=== PATIENT | female | born 1955 | race Caucasian/White ===

== ENCOUNTER 2016-11-19 10:57 | Inpatient (IN) ==
[2016-11-19] MEDS ORDERED: MORPHINE 4 MG/ML SYRINGE IVP PRN (12:46)
[2016-11-19] MEDS ORDERED: ATROPINE SULFATE PFS IVP PRN (12:46)
[2016-11-19] MEDS ORDERED: VISTARIL INJ IM PRN (12:46)
[2016-11-19] MEDS ORDERED: TYLENOL PO PRN ×2 (12:46→12:53)
[2016-11-19] MEDS ORDERED: NITROSTAT SL PRN (12:46)
[2016-11-19 13:19] LABS: BASOPHILS % (AUTO) 0.7 % (0.0-3.0); EOSINOPHILS % (AUTO) 0.5 % (0.0-7.0); HEMATOCRIT 36.7 % (37.0-47.0); HEMOGLOBIN 11.9 g/dl (12.0-16.0); IMMATURE GRANULOCYTE % (AUTO) 0.3 % (0.0-5.0); LYMPHOCYTES # (AUTO) 0.9 K/uL (0.60-3.4); LYMPHOCYTES % (AUTO) 15.2 (10.0-50.0); MEAN CORPUSCULAR HEMOGLOBIN 28.9 pg (27.0-31.0); MEAN CORPUSCULAR HGB CONC 32.4 (31.8-35.4); MEAN CORPUSCULAR VOLUME 89.1 fl (81.0-99.0); MONOCYTES # (AUTO) 0.6 K/uL (0.4-2.0); MONOCYTES % (AUTO) 10.1 (0-10); NEUTROPHILS # (AUTO) 4.4 K/ul (2.0-6.9); NEUTROPHILS % (AUTO) 73.2; PLATELET COUNT 188 10^3/uL (140-440); RED BLOOD COUNT 4.12 10^6/ul (4.20-5.40); WHITE BLOOD COUNT 5.94 K/ul (4.6-10.2)
[2016-11-19 13:19] LABS: BILIRUBIN,URINE Negative (NEGATIVE); KETONES,URINE Negative (NEGATIVE); LEUKOCYTE ESTERASE ,URINE Trace (NEGATIVE); NITRITE,URINE Negative (NEGATIVE); PROTEIN,URINE Negative (NEGATIVE); URINE, BLOOD Negative (NEGATIVE)
[2016-11-19] MEDS ORDERED: ULTRAM PO PRN (13:19)
[2016-11-19] MEDS ORDERED: DYAZIDE PO PRN (13:19)
[2016-11-19 13:23] LABS: ADD URINE MICROSCOPIC YES
[2016-11-19 13:30] LABS: BACTERIA,URINE TRACE (NOT PRESENT)
[2016-11-19 13:35] LABS: FLU INTERNAL QC INTERNAL QC VALID; RAPID FLU A NEGATIVE (NEGATIVE); RAPID FLU B NEGATIVE (NEGATIVE)
[2016-11-19 13:54] VITALS: BMI 35.6
[2016-11-19 13:54] LABS: ALANINE AMINOTRANSFERASE 16 U/L (12-78); ALBUMIN 3.5 g/dL (3.4-5.0); ALBUMIN/GLOBULIN RATIO 1.06; ALKALINE PHOSPHATASE 104 U/L (53-141); ANION GAP 10.9; ASPARTATE AMINO TRANSFERASE 19 U/L (15-37); BLOOD UREA NITROGEN 13 mg/dL (7-18); CALCIUM 9.4 mg/dL (8.2-10.2); CARBON DIOXIDE 26 mmol/L (23-31); CHLORIDE 105 mmol/L (98-107); CREATINE KINASE 47 U/L; GLUCOSE 116 mg/dL (82-115); MYOGLOBIN 117 ng/ml; POTASSIUM 3.9 mmol/L (3.5-5.10); SODIUM 138 mmol/L (136-145); TOTAL PROTEIN 6.8 g/dL (5.8-8.1)
--- NOTE | 2016-11-19 14:26 | DI ---
EXAM: Two views of the chest. History: Cough. Comparison: Chest radiograph 08/16/2014 Findings: Heart size is normal. No focal consolidation. No appreciable pleural fluid and no pneum othorax. No acute osseous abnormalities. Impression: No acute cardiopulmonary process.
[2016-11-19] MEDS: ROCEPHIN 1 GM in SODIUM CHLORIDE 50 ML IV SCH (15:41)
[2016-11-19] MEDS: SODIUM CHLORIDE 1,000 ML IV SCH (15:42)
[2016-11-19] MEDS: SOLU-MEDROL 40 MG IVP SCH ×2 (15:50→20:40)
[2016-11-19] MEDS: PHENERGAN WITH CODEINE 6.25/10 MG/5 ML PO SCH ×3 (15:50→20:42)
[2016-11-19] MEDS ORDERED: BETHANECHOL CHLORIDE 25 MG PO SCH (18:00)
[2016-11-19] MEDS: NON-FORMULARY MEDICATION (Esomeprazole Magnesium [Nexium] 20 MG) PO SCH ×22 (20:40)
[2016-11-19] MEDS: REQUIP PO SCH (20:41)
[2016-11-19] MEDS ORDERED: ROPINIROLE HCL PO SCH (21:00)
[2016-11-19] MEDS ORDERED: PRAVACHOL PO SCH (21:00)
[2016-11-19 21:45] LABS: CREATINE KINASE 85 U/L; MYOGLOBIN 76 ng/ml
[2016-11-20] MEDS: SOLU-MEDROL 40 MG IVP SCH (05:55)
[2016-11-20] MEDS ORDERED: SYNTHROID PO SCH (06:30)
[2016-11-20 06:31] LABS: BASOPHILS % (AUTO) 0.2 % (0.0-3.0); HEMATOCRIT 34.5 % (37.0-47.0); HEMOGLOBIN 11.2 g/dl (12.0-16.0); LYMPHOCYTES # (AUTO) 1.1 K/uL (0.60-3.4); LYMPHOCYTES % (AUTO) 21.7 (10.0-50.0); MEAN CORPUSCULAR HEMOGLOBIN 28.7 pg (27.0-31.0); MEAN CORPUSCULAR HGB CONC 32.5 (31.8-35.4); MEAN CORPUSCULAR VOLUME 88.5 fl (81.0-99.0); MONOCYTES # (AUTO) 0.2 K/uL (0.4-2.0); MONOCYTES % (AUTO) 3.9 (0-10); NEUTROPHILS # (AUTO) 3.8 K/ul (2.0-6.9); NEUTROPHILS % (AUTO) 73.2; PLATELET COUNT 192 10^3/uL (140-440); WHITE BLOOD COUNT 5.16 K/ul (4.6-10.2)
[2016-11-20] MEDS: SODIUM CHLORIDE 1,000 ML IV SCH (06:37)
[2016-11-20 06:58] LABS: ALBUMIN 3.2 g/dL (3.4-5.0); ALBUMIN/GLOBULIN RATIO 1.03; ANION GAP 9.9; BILIRUBIN,TOTAL 0.2 mg/dL (0.00-1.20); BUN/CREATININE RATIO 18.98; CALCIUM 9.1 mg/dL (8.2-10.2); CREATININE 0.79 mg/dL (0.60-1.30); POTASSIUM 3.9 mmol/L (3.5-5.10); TOTAL PROTEIN 6.3 g/dL (5.8-8.1)
[2016-11-20] MEDS ORDERED: ASPIRIN EC PO SCH ×2 (08:00)
[2016-11-20] MEDS: REQUIP PO SCH (08:17)
[2016-11-20] MEDS: NON-FORMULARY MEDICATION (Esomeprazole Magnesium [Nexium] 20 MG) PO SCH ×22 (08:19)
[2016-11-20] MEDS: ROCEPHIN 1 GM in SODIUM CHLORIDE 50 ML IV SCH (08:20)
[2016-11-20] MEDS: PHENERGAN WITH CODEINE 6.25/10 MG/5 ML PO SCH (08:27)
[2016-11-20] MEDS ORDERED: NON-FORMULARY MEDICATION (Solifenacin Succinate [Vesicare] 10 MG) PO SCH ×22 (09:00)
[2016-11-20] MEDS ORDERED: BETHANECHOL CHLORIDE 25 MG PO SCH (09:00)
[2016-11-20] MEDS ORDERED: VESICARE PO SCH (09:00)
[2016-11-20] MEDS ORDERED: ROPINIROLE HCL PO SCH (09:00)
[2016-11-20 10:38] VITALS: BP 106/48; TEMP 98.2
--- NOTE | 2016-11-20 12:56 | PCM.PROG ---
Attending Provider: ATTENDING PROVIDER: Dr. CASSIDY OLIVAS DATE OF SERVICE: 11/20/16 SUBJECTIVE: This 61 year old WHITE/ F was hospitalized 11/19/16. The patient is admitted with flu, pneumonia and fever of 103 yesterday. No fever today. The patient complains of cough which is productive. Blood pressure has been running low probably from the Phenergan with Codeine. She is urinating well and has been up to the bathroom by herself. REVIEW OF SYSTEMS: CONSTITUTIONAL: No fever, no chills. ENDOCRINE: No weight loss or weight gain. HEENT: No sinus drainage, no sore throat. CVS: No angina symptoms. No CHF symptoms. No palpitations. No atypical chest pain for CAD. No shortness of breath. RESPIRATORY: Cough and congestion. GI: No melena. No abdominal pain. No nausea, no vomiting. : No hematuria. No polyuria. SKIN: No rash. No wounds. MUSCULOSKELETAL: No pain. REHAB TRAINER: No blackout, no dizziness. No headache. No double vision. PSYCHIATRIC: Not anxious; no depression. No suicidal thoughts. No homicidal thoughts. PHYSICAL EXAMINATION: GENERAL: Lying in bed in no distress. VITAL SIGNS: Temperature 98.4 F, Pulse 62, Respiratory Rate 17, BP 90/58, Pulse Ox 96% HEENT: Normocephalic, atraumatic. Mucosa is dry, pallor positive. NECK: No JVP, no carotid bruit. No lymphadenopathy. CARDIAC: S1, S2, no S3. No murmur, gallop or regurgitation. LUNGS: Decreased entry. Clear to auscultation. ABDOMEN: Soft, non-tender. Bowel sounds active. No rigidity, guarding or CVA tenderness. EXTREMITIES: No clubbing, cyanosis or edema. NEUROLOGIC: Awake, alert and oriented x3. LYMPHATIC: No palpable lymph nodes SKIN: Not dry. Intact. MUSCULOSKELETAL: No joint swelling. LAB REVIEW: 11/20/16 05:45 11/20/16 05:45 11/20/16 05:45: WBC 5.16, RBC 3.90 L, Hgb 11.2 L, Hct 34.5 L, MCV 88.5, MCH 28.7 , MCHC 32.5, RDW Coeff of Lewis 12.7, Plt Count 192, Immature Gran % (Auto) 1.0, Neut % (Auto) 73.2, Lymph % (Auto) 21.7, [place] % (Auto) 3.9, Eos % (Auto) 0.0, Baso % (Auto) 0.2, Immature Gran # (Auto) 0.1, Neut # 3.8, Lymph # 1.1, [place] # 0.2 L, Eos # 0.0, Baso # 0.0, Sodium 140, Potassium 3.9, Chloride 109 H, Carbon Dioxide 25, Anion Gap 9.9, BUN 15, Creatinine 0.79, Estimated GFR (MDRD) 74.00, BUN/Creatinine Ratio 18.98, Glucose 135 H, Calcium 9.1, Total Bilirubin 0.20, AST 19, ALT 18, Alkaline Phosphatase 102, Total Protein 6.3, Albumin 3.2 L, Globulin 3.1, Albumin/Globulin Ratio 1.03 11/19/16 21:18: Total Creatine Kinase 85, Myoglobin 76, Troponin I < 0.0100 11/19/16 13:13: WBC 5.94, RBC 4.12 L, Hgb 11.9 L, Hct 36.7 L, MCV 89.1, MCH 28.9 , MCHC 32.4, RDW Coeff of [place] 12.8, Plt Count 188, Immature Gran % (Auto) 0.3, Neut % (Auto) 73.2, Lymph % (Auto) 15.2, [place] % (Auto) 10.1 H, Eos % (Auto) 0.5 , Baso % (Auto) 0.7, Immature Gran # (Auto) 0.0, Neut # 4.4, Lymph # 0.9, [place] # 0.6, Eos # 0.0, Baso # 0.0, Sodium 138, Potassium 3.9, Chloride 105, Carbon Dioxide 26, Anion Gap 10.9, BUN 13, Creatinine 1.00, Estimated GFR (MDRD) 56.00 , BUN/Creatinine Ratio 13.00, Glucose 116 H, Calcium 9.4, Total Bilirubin 0.30, AST 19, ALT 16, Alkaline Phosphatase 104, Total Creatine Kinase 47, Myoglobin 117, Troponin I < 0.0100, Total Protein 6.8, Albumin 3.5, Globulin 3.3, Albumin/ Globulin Ratio 1.06 11/19/16 13:08: Urine Color Yellow, Urine Clarity Clear, Urine pH 7.0, Ur Specific [place] 1.020, Urine Protein Negative, Urine Glucose (UA) Negative, Urine Ketones Negative, Urine Blood Negative, Urine Nitrite Negative, Urine Bilirubin Negative, Urine Urobilinogen 0.2, Ur Leukocyte Esterase Trace, Urine Microscopic RBC 0-2, Urine Microscopic WBC 5-10, Ur Squamous Epith Cells 0-2, Urine Bacteria Trace, Influenza A (Rapid) Negative, Influenza B (Rapid) Negative ASSESSMENT: 1. Febrile illness 2. URI 3. Hypotension secondary to medication PLAN: 1. Discharge home. 2. Will have patient up and about, fall precautions (watch for dizziness). 3. Off work until Thursday. 4. Medrol Dosepak. 5. Keflex 500 mg b.i.d. times 7 days. 6. Probiotics. 7. Increase hydration. 8. Followup in the office in one week. Plan and coordination of the patient's care discussed in the presence of Strapper Operator and nurse. CONDITION: Stable SCRIBED BY: HADLEY HERNANDES Engineering Job Titles scribed while in presence of service performed by Dr. CASSIDY OLIVAS on 11/20/16 ([id number])
--- NOTE | 2016-11-21 14:14 | HP ---
DATE OF SERVICE: 11/19/16 REASON FOR HOSPITALIZATION: "Since Thursday I have not been feeling good." HISTORY OF PRESENT ILLNESS: This is a 61-year-old female who states that since Thursday she has not been feeling good. She choked on a hamburger two days ago and since then has been coughing with congestion. Cough is dry. She has sinus drainage. She is hurting all over; throat pain. She checked her temperature at home and it was 102.4. She took two Tylenol and came to the office. REVIEW OF SYSTEMS: CONSTITUTIONAL: No fever, no fatigue. HEENT: Sinus drainage and sore throat. RESPIRATORY: Cough and congestion. CARDIOVASCULAR: No atypical chest pain for coronary artery disease. No angina , CHF symptoms, palpitations or shortness of breath. GASTROINTESTINAL: No melena or abdominal pain. No GERD. GENITOURINARY: No hematuria, no polyuria. ASSET PROTECTION GREETER: No blackout, no dizziness, no headache, no double vision. MUSCULOSKELETAL: Osteoarthritis pain. No joint swelling. ENDOCRINE: No weight loss, no weight gain. SKIN: Dry, no rash. PSYCHIATRIC: Anxious. No depression, no suicidal thoughts, no homicidal thoughts. PAST MEDICAL HISTORY: 1. COPD 2. HYPOTHYROIDISM 3. RESTLESS LEG SYNDROME 4. OSTEOARTHRITIS 5. STATUS POST CHOLECYSTECTOMY 6. OBESITY 7. DYSLIPIDEMIA 8. DDD MULTILEVEL WITHOUT COMPRESSION FRACTURE (L-SPINE X-RAY 05/21/16) 9. ANXIETY PAST SURGICAL HISTORY: 1. CHOLECYSTECTOMY 2. LASIK EYE SURGERY 3. ROTATOR CUFF LEFT 4. TUBAL LIGATION SOCIAL HISTORY: The patient is . Former smoker - does not smoke now. No alcohol use. Has two children. FAMILY HISTORY: Not significant. MEDICATIONS: 1. Celexa 40 mg one daily 2. ASA 325 mg one daily 3. Synthroid 50 mcg p.o. daily 4. Requip 2 mg one at h.s. 5. Protonix 40 mg daily 6. Vesicare 10 mg daily 7. Dyazide 3-4 days week 8. Tramadol 50 mg b.i.d. p.r.n. 9. Pravachol 40 mg one daily ALLERGIES: SULFA, PENICILLIN PHYSICAL EXAMINATION: V/S: Pulse 92, BP 140/70, temperature 103.8, 02 sat 96%. Weight 164.8 pounds. Height 4'9". GENERAL APPEARANCE: Oriented times three. Ill looking. Dry Mucosa. HEENT: Normal. NECK: No JVP, no bruits. RESPIRATORY: Lungs are clear. CARDIOVASCULAR: S1, S2, no S3, no murmurs. No cyanosis, clubbing. No ascites. GI/ABDOMEN: No tenderness. Bowel sounds are active. EXTREMITIES: edema, pulses +1, equal. ASSET PROTECTION GREETER: Deep tendon reflexes, sensory, motor and gait all normal. RECTAL/PELVIC: Colonoscopy - Dr. Diop 2012. Pelvic - Dr. Beltrán Mullen. Mammogram 03/01 [facility]. ASSESSMENT: 1. FEBRILE ILLNESS/FLU/ASPIRATION PNEUMONITIS 2. COPD 3. HYPOTHYROIDISM 4. RESTLESS LEG SYNDROME 5. OSTEOARTHRITIS 6. STATUS POST CHOLECYSTECTOMY 7. OBESITY 8. OSTEOARTHRITIS LEFT HIP PLAN: 1. Admit to regular floor with telemetry protocol. 2. CBC, CMP 3. Rapid flu A & B 4. Rapid strep 5. UA C & S 6. Chest x-ray AP and lateral 7. IV fluids at 70 mL/hr 8. Blood cultures times 2 9. Tylenol 500 mg p.o. t.i.d. p.r.n. fever more than 101 10. Rocephin 1 gm IV daily 11. Solu-Medrol IV q.8hr 12. Phenergan/Codeine two teaspoons p.o. q.i.d. TIME SPENT: More than 70 minutes. MTDD
--- NOTE | 2016-12-01 14:17 | DS ---
DATE OF SERVICE: 11/20/16 FINAL DIAGNOSIS: 1. Febrile illness/ upper respiratory tract infection, fever was 103.2 2. Hypotension secondary to the medication most likely the Phenergan codeine 3. History of COPD 4. TIA 5. GERD 6. Osteoarthritis 7. Hypothyroidism 8. Depression 9. Anxiety DISCHARGE INSTRUCTIONS: Discharge the patient home. Tylenol for fever. Please continue rest of the medication as per reconciliation. MEDICATIONS AT DISCHARGE: Vesicare 10mg PO daily Synthroid 50mcg PO QDAC Requip 2mg PO daily Bethanechol Chloride 25mg PO 1800 Aspirin 325mg PO daily Urecholine 25mg PO daily Dyazide one PO three times per week PRN Pravachol 40mg PO bedtime Tramadol 100mg PO twice a day PRN Requip 2.5mg PO bedtime Nexium 20mg PO twice a day Keflex 500mg PO Q 12 hours Medrol Dosepak as directed NEW PRESCRIPTIONS: Keflex 500mg twice a day for 7 days Medrol Dosepak as directed DIET INSTRUCTIONS: Increase fluids. ACTIVITY: As much as tolerated. Can get back to work on 11/24/16. SMOKING: Non-smoker DISEASE SPECIFIC EDUCATION: Fever Antibiotics Use of antibiotics and diarrhea as a complication been discussed. HOSPITAL COURSE: Jade Galvez who is a 61 year old female who works at the local [employer]f came to the office complaining of fever, cough, congestion, getting yellow/green phlegm and temperature was 103.2. With given high grade fever, cough, congestion and yellow/green sputum expected highly suspicious for the pneumonia some lung rattling and basilar crackles were also identified the patient was admitted to the hospital and started on the IV fluids and IV antibiotic Rocephin. Chest x-ray was negative for the pneumonia. Influenza A and B are negative. With Tylenol and antibiotic the patient's temperature was controlled and the next one was 99.3, 98.4. Phenergan and codeine was given. Her blood pressure was 81 systolic and 90 systolic but was asymptomatic walking in and out of the room. She says that she is not dizzy. Blood cultures were negative and strep screen was negative. The patient was afebrile and activity even though the blood pressure low she was not having any symptoms. Urine output was good. U/A was negative for any infection. Chest x-ray was negative for the pneumonia. By the next day the patient was doing better and at that time the patient is discharged home with antibiotic Keflex and Steroid pack. Advised to take a lot of fluids and take rest from work , one day. Follow up in the office within one week. TIME SPENT: More than 45 minutes. GWENDOLYN
== END 2016-11-20 11:02 | disposition home or self-care (01) | DRG 153 ==
LOC: MEDSURG A 10:57
PROVIDERS: ADMIT Emergency Medicine; ATTEND Emergency Medicine
DX: J06.9 Acute upper respiratory infection, unspecified (principal); R50.9 Fever, unspecified; I95.2 Hypotension due to drugs; T42.6X5A Adverse effect of other antiepileptic and sedative-hypnotic drugs, initial encounter; J44.9 Chronic obstructive pulmonary disease, unspecified; K21.9 Gastro-esophageal reflux disease without esophagitis; M19.90 Unspecified osteoarthritis, unspecified site; E03.9 Hypothyroidism, unspecified; F41.8 Other specified anxiety disorders; E66.9 Obesity, unspecified; Y92.9 Unspecified place or not applicable; Z79.899 Other long term (current) drug therapy; Z86.73 Personal history of transient ischemic attack (TIA), and cerebral infarction without residual deficits; Z87.891 Personal history of nicotine dependence
CPT/HCPCS: 36415; 80053; 81001; 82550; 83874; 84484; 85025; 87040; 87086; 87651; 87804; 87880; 93005; 93010

== ENCOUNTER 2016-12-12 11:41 | Outpatient (CLI) ==
[2016-12-12 12:16] LABS: FLU INTERNAL QC INTERNAL QC VALID; RAPID FLU A NEGATIVE (NEGATIVE); RAPID FLU B NEGATIVE (NEGATIVE)
== END 2016-12-12 11:42 | disposition home or self-care (01) ==
LOC: LAB 11:41
PROVIDERS: ATTEND Emergency Medicine
DX: R68.89 Other general symptoms and signs (principal)
CPT/HCPCS: 87804

== ENCOUNTER 2017-02-13 10:07 | Outpatient (CLI) ==
--- NOTE | 2017-02-13 11:37 | DI ---
EXAM: Three views of the right foot. History: Right foot pain. Findings: No acute fracture or dislocation. Moderate narrowing of the first MTP joint with subchon dral sclerosis and osteophyte formation. Tiny plantar spur. Borderline pes planus deformity. Diff use subcutaneous edema. Impression: 1. No acute osseous abnormality. 2. Moderate osteoarthritis of the first MTP joint. 3. Diffuse subcutaneous edema.
== END 2017-02-13 10:08 | disposition home or self-care (01) ==
LOC: RAD 10:07
PROVIDERS: ATTEND Internal Medicine
DX: M79.671 Pain in right foot (principal)

== ENCOUNTER 2017-08-27 11:28 | Outpatient (CLI) ==
--- NOTE | 2017-08-27 12:43 | DI ---
Exam: Two x-rays of the chest. Comparison: 11/19/2016. Reason for exam: Cough. FINDINGS: No pneumothorax, pleural effusion, or focal consolidation. The cardiac silhouette is unch anged. The imaged osseous structures appear grossly unremarkable with degenerative disease in the althea mbosacral spine. Surgical clips are seen in the right upper quadrant likely after gallbladder remova l. Impression: No acute cardiopulmonary process.
== END 2017-08-27 11:29 | disposition home or self-care (01) ==
LOC: RAD 11:28
PROVIDERS: ATTEND Internal Medicine
DX: R05 Cough (principal)

== ENCOUNTER 2017-10-19 06:35 | Outpatient (CLI) ==
--- NOTE | 2017-10-20 08:46 | ECHO2D ---
Date of Exam: 10/19/17 Ordering Physician: TRANG BARRETO Room #: OP Reason for Echo: SOB, LEG EDEMA, COPD M-Mode Normal Adult Results LV Dimensions Normal Adult Results AoV Opening excursions >1.6 >1.6 LVEDD-base- 3.5-5.8 4.4 Ao root dimensions 2.0-3.7 3.1 LVESD-base- 3.1-4.6 L. Atrium dimensions 1.9-3.8 3.5 Post. Wall thickness 0.8-1.1 1.1 IV septum (thickness) 0.7-1.2 1.2 Post. Wall excursion 0.72-1.3 Septal motion NORMAL Systolic motion R. Ventricular cavity 1.5-2.0 NORMAL LVEF 60% 57% Paradoxical septal wall motion NORMAL 2-D : 2-D M Mode Echocardiogram was performed using apical four chamber and left parasternal long and short axis views. Mitral, tricuspid and aortic valves appear to be normal. Contractility of the left ventricle seems to be normal, so is the cavity size. Left atrial cavity size and aortic root appear to be normal. There is no pericardial effusion. There is no thrombus noted in the left ventricular or left aortic cavity. No mitral valve prolapse noted. M-MODE: MV: NORMAL AV: NORMAL TV: NORMAL PV: CHAMBER SIZE: NORMAL WALL MOTION: NORMAL PERICARDIUM: NORMAL INTERPRETATION: 1. BORDERLINE LEFT VENTRICULAR HYPERTROPHY 2. NORMAL LEFT VENTRICULAR CONTRACTILITY 3. NORMAL VALVES MTDD
== END 2017-10-19 06:36 | disposition home or self-care (01) ==
LOC: CAR 06:35
PROVIDERS: ATTEND Internal Medicine
DX: R06.02 Shortness of breath (principal); R60.0 Localized edema; J44.9 Chronic obstructive pulmonary disease, unspecified
CPT/HCPCS: 93005; 93010

== ENCOUNTER 2017-10-28 09:03 | Outpatient (CLI) ==
--- NOTE | 2017-10-28 10:56 | CT ---
EXAM: CT chest with contrast HISTORY: Chronic cough COMPARISON: None TECHNIQUE: CT chest performed with intravenous contrast. Coronal and sagittal reformatted images ob tained. FINDINGS: Thyroid and thoracic inlet appear normal. Heart normal in size. No pericardial effusion. Esophagus appears normal. No lymphadenopathy identified. Calcified mediastinal and left hilar lym ph nodes, consistent with old granulomatous disease. Aorta normal in caliber. Patient status post c holecystectomy. Granulomatous calcification in the spleen. Visualized portion upper abdomen demonst rates no acute abnormality. No acute abnormalities of the bones. Degenerate change in the spine. C entral airway patent. Granulomatous calcification. No airspace consolidation. No pleural effusion. No pneumothorax. IMPRESSION: No acute cardiopulmonary process.
== END 2017-10-28 09:04 | disposition home or self-care (01) ==
LOC: RAD 09:03
PROVIDERS: ATTEND Internal Medicine
DX: R05 Cough (principal); J44.9 Chronic obstructive pulmonary disease, unspecified

== ENCOUNTER 2018-01-12 15:50 | Outpatient (CLI) | END 2018-01-12 15:51 | disposition home or self-care (01) | LOC: CAR 15:50 | PROVIDERS: ATTEND Internal Medicine | DX: G47.30 Sleep apnea, unspecified (principal) | CPT/HCPCS: 95810 ==

== ENCOUNTER 2019-03-08 14:13 | Outpatient (CLI) ==
--- NOTE | 2019-03-08 15:18 | DI ---
EXAM: RIGHT ELBOW HISTORY: Elbow pain FINDINGS: Right elbow three-view. There is mild to moderate arthropathy of the elbow. There is no fracture or joint dislocation. Soft tissues are within normal limits. IMPRESSION: 1. Osteoarthritis.
--- NOTE | 2019-03-08 15:23 | DI ---
EXAM: RIGHT SHOULDER HISTORY: Shoulder pain FINDINGS: Right shoulder three-view. Bone and joint structures are within normal limits. There is no joint dislocation or fracture identified. Bone density and soft tissues are unremarkable. IMPRESSION: Within normal limits.
== END 2019-03-08 14:14 | disposition home or self-care (01) ==
LOC: RAD 14:13
PROVIDERS: ATTEND Internal Medicine
DX: M25.511 Pain in right shoulder (principal); M25.521 Pain in right elbow

== ENCOUNTER 2019-07-28 09:13 | Inpatient (IN) ==
[2019-07-28 10:02] VITALS: BMI 36.1
[2019-07-28] MEDS ORDERED: VISTARIL INJ IM PRN (10:17)
[2019-07-28] MEDS ORDERED: TYLENOL PO PRN (10:17)
[2019-07-28] MEDS ORDERED: ATROPINE SULFATE PFS IVP PRN (10:17)
[2019-07-28] MEDS ORDERED: NITROSTAT SL PRN (10:17)
[2019-07-28] MEDS ORDERED: ZOFRAN 4 MG/2 ML IVP PRN (10:25)
[2019-07-28] MEDS ORDERED: LASIX TAB PO PRN (11:04)
[2019-07-28] MEDS ORDERED: K-DUR PO PRN (11:04)
[2019-07-28] MEDS ORDERED: CARAFATE PO PRN ×2 (11:04→12:30)
[2019-07-28] MEDS ORDERED: SYMBICORT 160-4.5 MCG INHALER IH PRN (11:29)
[2019-07-28] MEDS: ROCEPHIN 1 GM/50 ML D5W 1 GM/50 ML BAG IV SCH (11:42)
[2019-07-28] MEDS: LASIX IVP SCH (11:42)
--- NOTE | 2019-07-28 13:30 | DI ---
EXAM: Chest two views HISTORY: Shortness of breath FINDINGS: Compared to 08/27/2017. Heart size remains within normal limits. Questionable mild ather osclerotic disease. No acute infiltrates are seen. No vascular congestion. There is no consolidati on, visible pleural fluid or pneumothorax. Bones reveal no acute fracture. IMPRESSION: Questionable atherosclerosis. No acute cardiopulmonary process.
--- NOTE | 2019-07-28 15:51 | US ---
EXAM: ULTRASOUND LOWER EXTREMITY VENOUS DOPPLER EXAM HISTORY: Leg edema. FINDINGS: Bilateral lower extremity venous Doppler exam. Real time singh-scale, Doppler spectral chencho lysis and color-flow Doppler imaging performed. The veins targeted for evaluation include the common femoral, greater saphenous, profundus, femoral, popliteal, peroneal, anterior tibial and posterior t ibial. The left anterior tibial vein was not seen. The evaluated veins demonstrated normal spontane ous flow and compression without evidence of thrombosis. IMPRESSION: Minor exam limitations as described. No venous thrombosis identified within the areas ev aluated.
[2019-07-28] MEDS: PROTONIX PO SCH (21:25)
[2019-07-28] MEDS: MIRAPEX PO SCH (21:25)
[2019-07-28] MEDS: BACTROBAN TP SCH (21:26)
[2019-07-28] MEDS: PRAVACHOL PO SCH (21:26)
[2019-07-29] MEDS: LASIX IVP SCH (06:08)
[2019-07-29] MEDS ORDERED: DECADRON 4 MG/ML SDV IM STA (08:08)
[2019-07-29] MEDS: ROCEPHIN 1 GM/50 ML D5W 1 GM/50 ML BAG IV SCH (08:37)
[2019-07-29] MEDS: ASPIRIN EC PO SCH (08:37)
[2019-07-29] MEDS: PROTONIX PO SCH ×2 (08:38→21:01)
[2019-07-29] MEDS: K-DUR PO SCH (08:38)
--- NOTE | 2019-07-29 09:13 | PCM.PROG ---
Attending Provider: ATTENDING PROVIDER: Dr. TRANG BARRETO This patient is seen with Carrie Hinton, Nurse Practitioner. DATE OF SERVICE: 07/29/19 SUBJECTIVE: This 64 year old WHITE/ F was hospitalized 07/28/19. The patient is resting comfortably. Leg edema has significantly improved but not resolved. Cough somewhat with nasal congestion. REVIEW OF SYSTEMS: CONSTITUTIONAL: No night sweats. No fatigue, malaise, lethargy. No fever or chills. HEENT: Eyes: No visual changes. No eye pain. No eye discharge. ENT: Nasal Congestion. No epistaxis. No sinus pain. No odynophagia. No congestion. RESPIRATORY: No cough, no congestion. No hemoptysis. No shortness of breath. CARDIOVASCULAR: No angina symptoms. No CHF symptoms. No atypical chest pain for CAD. No palpitations. No orthopnea.. GASTROINTESTINAL: No abdominal pain. No nausea or vomiting. No diarrhea or constipation. No hematemesis. No hematochezia. GENITOURINARY: No urgency. No frequency. No dysuria. No hematuria. No obstructive symptoms. No discharge. No pain. No significant abnormal bleeding. MUSCULOSKELETAL: No musculoskeletal pain; no joint swelling. NEUROLOGICAL: Awake, alert, oriented to time, place and person. No headache. No neck pain. No syncope. No seizures. No dizziness. PSYCHIATRIC: Not anxious. No depression. No suicidal thoughts. No homicidal thoughts. SKIN: No rash. No lesions. No wounds. Leg edema. ENDOCRINE: No unexplained weight loss. No weight gain. HEMATOLOGIC/LYMPHATIC: No anemia. No purpura. No petechiae. No prolonged or excessive bleeding. No palpable lymph nodes. PHYSICAL EXAMINATION: GENERAL: The patient is awake, alert and oriented, lying in bed in no distress. VITAL SIGNS: Temperature 98.2 F, Pulse 54, Respiratory Rate 18, BP 118/58, Pulse Ox 98% HEENT: Head normocephalic, atraumatic. Eyes: Extraocular muscles are intact. Pupils are equal, round and reactive to light and accommodation. Ears: No lesions. Nose appeared normal. Throat: No exudate or erythema. NECK: Supple. No JVD, no carotid bruit. No lymphadenopathy or thyromegaly. LUNGS: Clear to auscultation. Percussion note normal. Chest symmetrical. HEART: S1, S2, no S3. No murmurs. No cyanosis or clubbing. No ascites. Pulses: Dorsalis pedis and posterior tibial pulses +1 to +2 both sides. ABDOMEN: Soft. Non-tender. Bowel sounds active. No CVA tenderness. No mass felt. EXTREMITIES: 1+ left lower extremity and trace right lower extremity edema. Improved erythema left lower extremity. Full range of motion of all extremities , equal. NEUROLOGIC: No focal deficit. Cranial nerves II through XII are grossly intact. No headache, no double vision or headache. SKIN: Not dry. Intact. Turgor-normal. LYMPHATIC: No palpable lymph nodes/no lymphedema. MUSCULOSKELETAL: Normal joints with no swelling. Muscle tone is normal. LAB REVIEW: 07/29/19 04:59 07/29/19 04:59 07/29/19 04:59: Sodium 137.5, Potassium 3.58, Chloride 102.3, Carbon Dioxide 29.9, Anion Gap 8.88, BUN 21.2 H, Creatinine 0.86, Estimated GFR (MDRD) 66.00, BUN/Creatinine Ratio 24.65, Glucose 102.9, Calcium 10.26 H, Total Bilirubin 0.52 , AST 21.6, ALT 17.3, Alkaline Phosphatase 110.0, Total Protein 7.28, Albumin 4.15, Globulin 3.13, Albumin/Globulin Ratio 1.32 07/29/19 04:59: WBC 7.52, RBC 4.32, Hgb 12.4, Hct 38.8, MCV 89.8, MCH 28.7, MCHC 32.0, RDW Coeff of Lewis 12.5, Plt Count 191, Immature Gran % (Auto) 0.8, Neut % (Auto) 64.1, Lymph % (Auto) 21.8, [place] % (Auto) 8.9, Eos % (Auto) 3.3, Baso % (Auto) 1.1, Immature Gran # (Auto) 0.1, Neut # (Auto) 4.8, Lymph # (Auto ) 1.6, [place] # (Auto) 0.7, Eos # (Auto) 0.3, Baso # (Auto) 0.1 07/28/19 12:25: Urine Color Yellow, Urine Clarity Clear, Urine pH 7.0, Ur Specific [place] 1.015, Urine Protein Negative, Urine Glucose (UA) Negative, Urine Ketones Negative, Urine Blood Negative, Urine Nitrite Negative, Urine Bilirubin Negative, Urine Urobilinogen 0.2, Ur Leukocyte Esterase Negative ASSESSMENT: Please see below. 1. Left leg Cellulitis 2. Bilateral leg edema, improved 3. Acute sinusitis. PLAN: 1. 1cc Decadron IM 2. Potassium 40mg PO daily Plan and coordination of the patient's care discussed in the presence of Tree Trimming Line Technician and nurse. SCRIBED BY: Luis ARGUETA scribed while in presence of service performed by Dr. Barreto/Carrie Hinton APRN on 07/29/19 ([id number])
--- NOTE | 2019-07-29 13:07 | CT ---
EXAM: CT ABDOMEN AND PELVIS HISTORY: Nausea and vomiting. TECHNIQUE: CT abdomen and pelvis with and without intravenous contrast. Images were reconstructed u sing 5 mm section thickness. Reformations were prepared. FINDINGS: No comparison. No focal hepatic or splenic lesion. Gallbladder is absent. Pancreas is within normal limits. Tricia l adrenal glands. Small cyst of the inferior left kidney is suggested. No hydronephrosis or evidenc e of ureteral obstruction. There is at least mild atherosclerotic disease. Stomach appears normal. Normal appendix and general bowel gas pattern. A few scattered colonic dive rticula are present without obvious inflammation. Uterus and urinary bladder are within normal limit s. There is no ascites. Abdominal wall is intact. The bones reveal moderate degenerative disc and facet disease of the spine . There is endplate sclerosis and a few endplate lucencies at L2/L3 which is probably related to the scoliotic curvature as well as longstanding regional degenerative disc disease. Correlate clinicall y for any evidence of less likely diskitis or osteomyelitis. MRI is available if indicated. Lung ba ses are clear. No pneumoperitoneum IMPRESSION: 1. No etiology for the patient's nausea and vomiting. Normal bowel gas pattern. The stomach appear s normal. There are a few scattered colonic diverticula without inflammation. 2. Atherosclerosis. 3. Findings most suggestive of significant degenerative disc disease of the spine as discussed in th e last paragraph of the report.
--- NOTE | 2019-07-29 14:02 | HP ---
DATE OF SERVICE: 07/28/19 REASON FOR HOSPITALIZATION/HISTORY OF PRESENT ILLNESS: 64 year old white female hospitalized with left leg redness and swelling. She has doubled on Lasix for two days. She has had chills and achy with nausea and vomiting this AM. PAST MEDICAL HISTORY/PAST SURGICAL HISTORY: GERD 01/13/19 InterStim II-urinary bladder stimulation- Dr. Shahid Sleep study- CPAP COPD-Dr. Gonzalez Restless leg syndrome Osteoarthritis, left hip Status post cholecystectomy GERD Obesity Hypothyroidism Fibromyalgia Overactive bladder right shoulder/right elbow pain status post fall a year ago. REVIEW OF SYSTEMS: CONSTITUTIONAL: No fever, Fatigue. HEENT: No sinus drainage, no sore throat. RESPIRATORY: No cough, no congestion. CARDIOVASCULAR: No atypical chest pain for coronary artery disease. No angina , CHF symptoms, palpitations or shortness of breath. GASTROINTESTINAL: No melena or abdominal pain. GERD. Nausea. GENITOURINARY: No hematuria, no prostatism, no polyuria. MACHINE TOOL OPERATOR: No blackout, no dizziness, no headache, no double vision. GAIT: Wheelchair. MUSCULOSKELETAL: No osteoarthritis pain, no joint swelling. Left leg. ENDOCRINE: No weight loss, no weight gain. SKIN: Not dry, no rash. PSYCHIATRIC: Not anxious, no depression, no suicidal thoughts, no homicidal thoughts. SOCIAL HISTORY: Marital Status: . Alcohol Usage: No. Tobacco Usage: No. FAMILY HISTORY: Father lung CA Mother CHF Brother 2 lung CA, colo rectal CA-1 alive healthy Sister one healthy MEDICATIONS: Protonix 40mg BID Mirapex 0.25mg one HS Pravachol 40mg PO daily Lasix 20mg PO PRN Potassium 20meq PRN Symbicort 160mg BID PRN Carafate 1gram QID PRN ALLERGIES: Sulfa Penicillin She can take Keflex. PHYSICAL EXAMINATION: V/S: Pulse 68, blood pressure 142/74, temperature 97.5, oxygen saturation 100% . height 4'9 GENERAL APPEARANCE: Oriented times three. HEENT: Normal. NECK: No JVP, no bruits. RESPIRATORY: Lungs are clear. CARDIOVASCULAR: S1, S2, no S3, no murmurs. No cyanosis, clubbing. No ascites. GI/ABDOMEN: No tenderness. Bowel sounds are active. EXTREMITIES: +1 right lower extremity, +2 pitting left lower extremity edema with surrounding erythema posterior 1cm red lesion. pulses +1, equal. MACHINE TOOL OPERATOR: Deep tendon reflexes, sensory, motor and gait all normal. RECTAL: Dr. Sapp 2014 Colonoscopy/PELVIC: [place] Dr. Marie, Mammogram 06/02 [facility]. ASSESSMENT: 1. Left leg cellulitis 2. Bilateral leg edema 3. Shortness of breath with exertion 4. Chronic cough 5. GERD 6. 01/13/19 InterStim II-urinary bladder stimulation- Dr. Shahid 7. Sleep study- CPAP 8. COPD-Dr. Gonzalez 9. Restless leg syndrome 10.Osteoarthritis, left hip 11.Status post cholecystectomy 12.GERD 13.Obesity 14.Hypothyroidism 15.Fibromyalgia 16.Overactive bladder 17.Right shoulder/right elbow pain status post fall a year ago. PLAN: 1. Admit 2. Routine telemetry orders 3. CBC and CMP daily 4. Rocephin 1 gram IV daily 5. Elevate foot of bed 6. Continue home medication 7. Lasix 40mg IV today and tomorrow 8. Zofran 4mg IV Q 6 hours PRN 9. Bactroban Ointment to back left leg 10.Bilateral venous scan 11.CT of abdomen and pelvis with and without Thursday AM. TIME SPENT: More than 70 minutes. MTDD
[2019-07-29] MEDS: BACTROBAN TP SCH ×2 (15:28→21:01)
[2019-07-29] MEDS: PRAVACHOL PO SCH (21:01)
[2019-07-29] MEDS: MIRAPEX PO SCH (21:01)
[2019-07-30 05:05] VITALS: BP 136/67; TEMP 97.9
[2019-07-30] MEDS ORDERED: LASIX TAB PO SCH (06:30)
[2019-07-30] MEDS: ASPIRIN EC PO SCH (09:02)
[2019-07-30] MEDS: PROTONIX PO SCH (09:04)
[2019-07-30] MEDS: K-DUR PO SCH (09:05)
[2019-07-30] MEDS: BACTROBAN TP SCH (09:11)
[2019-07-30] MEDS: ROCEPHIN 1 GM/50 ML D5W 1 GM/50 ML BAG IV SCH (09:13)
--- NOTE | 2019-07-31 12:12 | PN ---
DATE OF SERVICE: 07/29/19 SUBJECTIVE: The patient was seen and examined with the nurse practitioner. Her bilateral venous scan is negative for any DVT. CT scan of the abdomen was also negative for ascites or any intraabdominal acute process. Leg edema is dependent on her venous insufficiency along with lifestyle. TIME SPENT: More than 30 minutes. Plan and coordination of the patient's care discussed in the presence of nurse. GWENDOLYN
--- NOTE | 2019-07-31 12:26 | PN ---
DATE OF SERVICE: 07/30/19 SUBJECTIVE: This 64-year-old white female was hospitalized with left leg cellulitis. The patient's condition has completely resolved clinically, practically no edema noted on both lower extremities. She is feeling a lot better. The patient has been given Rocephin and antibiotics for the past four to five days. Practically there is no redness at all. Very likely it was from stretching of the leg skin with leg edema that caused the redness. There was no real cellulitis. In any case severe edema has resolved. REVIEW OF SYSTEMS: CONSTITUTIONAL: No night sweats. No fatigue, malaise, lethargy. No fever or chills. HEENT: Eyes: No visual changes. No eye pain. No eye discharge. ENT: No runny nose. No epistaxis. No sinus pain. No sore throat. No odynophagia. No congestion. RESPIRATORY: No cough, no congestion. No hemoptysis. No shortness of breath. CARDIOVASCULAR: No angina symptoms. No CHF symptoms. No atypical chest pain for CAD. No palpitations. No PND. No orthopnea. GASTROINTESTINAL: No abdominal pain. No nausea or vomiting. No diarrhea or constipation. No hematemesis. No hematochezia. GENITOURINARY: No urgency. No frequency. No dysuria. No hematuria. No obstructive symptoms. No discharge. No pain. No significant abnormal bleeding. MUSCULOSKELETAL: No musculoskeletal pain; no joint swelling. NEUROLOGICAL: No headache. No neck pain. No syncope. No seizures. No dizziness. PSYCHIATRIC: Not anxious. No depression. No suicidal thoughts. No homicidal thoughts. SKIN: No rash. No lesions. No wounds. ENDOCRINE: No unexplained weight loss. No weight gain. HEMATOLOGIC/LYMPHATIC: No anemia. No purpura. No petechiae. No prolonged or excessive bleeding. No palpable lymph nodes. PHYSICAL EXAMINATION: VITAL SIGNS: Temperature 97.9, pulse 61, respiratory rate 18, BP 136/67. Pulse ox 95%. HEENT: Head normocephalic, atraumatic. Eyes: Extraocular muscles are intact. Pupils are equal, round and reactive to light and accommodation. Ears: No lesions. Nose appeared normal. Throat: No exudate or erythema. NECK: Supple. No JVD, no carotid bruit. No lymphadenopathy or thyromegaly. LUNGS: Decreased breath sounds but clear to auscultation. Percussion note normal. Chest symmetrical. HEART: S1, S2, no S3. No murmurs. No cyanosis or clubbing. No ascites. Pulses: Dorsalis pedis and posterior tibial pulses +1 to +2 bilaterally. ABDOMEN: Soft. Nontender. Bowel sounds active. No CVA tenderness. No mass felt. EXTREMITIES: No edema. Full range of motion of all extremities, equal. NEUROLOGIC: No focal deficit. Cranial nerves II through XII are grossly intact. No headache, no double vision or headache. SKIN: Not dry. Intact. Turgor - normal. LYMPHATIC: No palpable lymph nodes/no lymphedema. MUSCULOSKELETAL: Normal joints with no swelling. Muscle tone is normal. LABS: Hemoglobin 12.2, hematocrit 38, WBC 12,000. Normal differential. Creatinine 0.7 , BUN 19, potassium 4. ASSESSMENT: 1. Bilateral leg edema, dependent with maybe superficial skin infection which has completely resolved. 2. Hypertension. 3. Obesity. 4. History of leg edema. 5. Dyslipidemia. 6. Restless leg syndrome. PLAN: 1. Discharge the patient home. 2. The patient is going to be given 20 mg Lasix along with Aldactone 25 mg. 3. Advised to keep the legs elevated. 4. Advised to discontinue any exotic diet. TIME SPENT: More than 30 minutes. Plan and coordination of the patient's care discussed in the presence of nurse. GWENDOLYN
--- NOTE | 2019-07-31 12:43 | DS ---
DATE OF SERVICE: 07/30/19 FINAL DIAGNOSIS: 1. BILATERAL LEG EDEMA WITH BRAWNY INDURATION WITH HEMOSIDERAN PIGMENTATION LEFT LOWER EXTREMITY MAINLY. 2. HYPERTENSION. 3. OBESITY. 4. DYSLIPIDEMIA. 5. RESTLESS LEG SYNDROME. DISCHARGE INSTRUCTIONS: The patient has been scheduled for Stress Echo Sestamibi which will be rescheduled. She is advised to come back in 2 to days. MEDICATIONS AT DISCHARGE: The patient is to be continued on all the medications: Pravachol 40 mg p.o. bedtime K-Dur 20 mg p.o. daily p.r.n. Lasix 20 mg p.o. daily p.r.n. Mirapex 0.25 mg p.o. bedtime Carafate 1 gm a.c. and h.s. p.r.n. Symbicort two puff IH b.i.d. p.r.n. Protonix 40 mg p.o. b.i.d. NEW PRESCRIPTIONS: Aldactone 25 mg p.o. daily DISCONTINUED MEDICATIONS: None DIET INSTRUCTIONS: Continue on diet as before. Advised to cut down on salt intake. ACTIVITY: As the patient tolerates. SMOKING: Nonsmoker DISEASE SPECIFIC EDUCATION: Medications. Lifestyle modifications to include weight loss. Keep legs elevated. HOSPITAL COURSE: 64-year-old white female hospitalized with severe leg edema, +2 pitting to +3 pitting with brawny skin color from stretching and hemosideran pigmentation. The patient was given Rocephin for 2 to 3 days. In any case, the patient's leg edema completely subsided with no evidence of infection. The patient did not have any cellulitis. In any case, the patient was discharged home on diuretic therapy, Lasix and Aldactone. Advised to keep the legs up. Advised to cut down on salt. Advised to lose weight. CONDITION AT TIME OF DISCHARGE: Stable. TIME SPENT: More than 60 minutes. [facility]
--- NOTE | 2019-07-31 12:44 | PN ---
CODING FOR BILLING 07/28/19 ADMISSION DAY LEVEL 5 07/29/19 INTERMEDIATE 07/30/19 INTERMEDIATE 07/31/19 DISCHARGE MTDD
== END 2019-07-30 11:38 | disposition home or self-care (01) | DRG 603 ==
LOC: MEDSURG B 09:13
PROVIDERS: ADMIT Internal Medicine; ATTEND Internal Medicine
DX: E66.9 Obesity, unspecified; L81.9 Disorder of pigmentation, unspecified; I10 Essential (primary) hypertension; R11.2 Nausea with vomiting, unspecified; E78.5 Hyperlipidemia, unspecified; N32.81 Overactive bladder; M16.12 Unilateral primary osteoarthritis, left hip; J44.9 Chronic obstructive pulmonary disease, unspecified; R05 Cough; M25.511 Pain in right shoulder; E03.9 Hypothyroidism, unspecified; M79.7 Fibromyalgia; G25.81 Restless legs syndrome; K21.9 Gastro-esophageal reflux disease without esophagitis; J01.90 Acute sinusitis, unspecified; R23.4 Changes in skin texture; R06.02 Shortness of breath; L03.116 Cellulitis of left lower limb